=== PATIENT | female | born 1990 | race African-American/Black ===

== ENCOUNTER 2024-10-25 20:54 | Emergency (ER) | payer OTHER ==
[~2024-10-25] VITALS: Ht 182.9 cm; Wt 95.0 kg
--- NOTE | 2024-10-25 22:35 | Physician Documentation ---
History of Present Illness ~ Chief Complaint: Asthma Stated Complaint: BREATHING ISSUES ASTHMA Time Seen by MD: 22:24 OK to notify your PCP?: Yes Source: patient Mode of Arrival: POV Exam Limitations: no limitations HPI This is a 33-year-old female who comes in complaining of has been exacerbation. The patient was states she was [place] and does not have a primary care physician. She states she has albuterol at home but is starting to run out. She denies chest pain. She denies cold or flu symptoms. She denies fever. Medication Reconciliation Allergies: Coded Allergies: No Known Allergies (Unverified , 10/25/24) Scheduled Prednisone* (Prednisone*), 3 TAB PO DAILY Scheduled PRN albuterol inhaler (Pro-Air Inhaler), 2 PUFFS INH Q4HPRN PRN for wheezing Physical Exam Vital Signs: Temperature: 98.6, Source: Temporal, Heart Rate: 81, Respiratory Rate: 18, BP: 134/81, Pulse Oximetry: 98, Weight: 95.000 Oxygen Flow Rate: 0 Pulse Oximetry Reflects: adequate oxygenation General Appearance: alert, WD/WN, no apparent distress EENT: normal ENT inspection Respiratory No accessory muscle use or retraction. To auscultation of the lungs the patient has not occasional scant wheeze. She is moving air well. No crackles or rales. Skin: normal color, warm/dry Progress Results/Orders Results/Orders Completed Orders - JULIUS GALDAMEZ Prednisone Tablet (Prednisone Tablet) (10/25/24 22:35) Ipratropium/Albuterol Nebule (Ipratrop/A (10/25/24 22:35) Medications Received in ER Medications (Trade) Dose Ordered Sig/Fredo Route PRN Reason Start Time Stop Time Status Last Admin Dose Admin (predniSONE tablet) 60 mg ONCE ONCE PO 10/25/24 22:35 10/25/24 22:36 DC 10/25/24 22:49 60 MG (ipratrop/ albuterol 0.5-3(2.5) MG/3ml nebule) 3 ml ONCE ONCE NEB 10/25/24 22:35 10/25/24 22:36 DC 10/25/24 22:58 3 ML Vital Signs 10/25/24 10/25/24 10/25/24 21:06 23:00 23:04 Temp 98.6 Pulse 81 76 75 Resp 18 18 18 B/P (MAP) 134/81 Pulse Ox 98 95 95 O2 Delivery Room Air* Room Air* O2 Flow Rate 0 0 0 FiO2 21 21 Medical Decision Making Findings Patient was received 60 mg p.o. of prednisone and a DuoNeb breathing treatment after which she states she feels better. Her lungs are improved though there is a occasional scant wheeze here and there. She was moving air much better. I am going to refill her albuterol inhaler and give her a prescription for prednisone 60 mg once a day for the next four days. The patient was new to the areas so I will give her contact information for the [facility]. She can return if she was any worsening or concerning symptoms. Additional Infomation Asthma exacerbation. URI. Shortness of breath. Departure Disposition: HOME / SELF CARE / HOMELESS Impression: Primary Impression: Asthma exacerbation Condition: Stable Discharge Instructions: Asthma, Adult, [id number] Additional Instructions: Take the medications as prescribed. You were new to the [facility] so I will give you contact information for the [facility] which is a local [facility] take it she was started on establishing a primary care phys ician. Return to the ER for any worsening or concerning symptoms. Referrals: NO PRIMARY CARE PROVIDER (PCP) Prescriptions Albuterol Sulfate (Albuterol Sulfate) 2.5 Mg/0.5 Ml Vial.neb 1 VIAL NEB Q4H, #30 VIAL Prov: JULIUS GALDAMEZ 10/25/24 Prednisone* (Prednisone*) 20 Mg Tablet 3 TAB PO DAILY for 4 Days, #12 TAB Prov: JULIUS GALDAMEZ 10/25/24 albuterol inhaler (Pro-Air Inhaler) 8.5 Gm Inhaler 2 PUFFS INH Q4HPRN PRN for wheezing for 30 Days, #18 GM Prov: JULIUS GALDAMEZ 10/25/24 Signature Scribe Signature: No scribe Attestation: The note accurately reflects work and decisions made by me.Julius GILBERT 09/29 02/21 23:18 JULIUS GALDAMEZ Oct 25, 2024 22:35
[2024-10-25] MEDS: predniSONE 20 mg tablet PO ONE (22:49)
[2024-10-25] MEDS: ipratropium/albuterol 3ml nebule NEB ONE (22:58)
[2024-10-25 23:00] VITALS: PULSE 76; RESP 18; O2SAT 95
[2024-10-25 23:04] VITALS: PULSE 75; RESP 18; O2SAT 95
[2024-10-25] MEDS ORDERED: ALBU8HFA INH (23:18)
[2024-10-25] MEDS ORDERED: PRED20TA PO (23:18)
[2024-10-25 23:24] VITALS: BP 132/80; PULSE 75; RESP 18; TEMP 98.6; O2SAT 99
[2024-10-25] MEDS ORDERED: ALBU2.5V12 NEB (23:26)
== END 2024-10-25 23:25 | disposition home or self-care (01) ==
LOC: ER 20:56
DX: J45.901 Unspecified asthma with (acute) exacerbation (principal); Z79.52 Long term (current) use of systemic steroids
CPT/HCPCS: 94640; 99283; J7512